=== PATIENT | female | born 1960 | race Hispanic/Latino ===

== ENCOUNTER → 2023-12-30 11:01 | Outpatient (REF) | payer OTHER, SELFPAY | LOC: WDC 11:01 | PROVIDERS: ATTENDING PHYSICIAN Nurse Practitioner Adult Health | DX: Z12.31 Encounter for screening mammogram for malignant neoplasm of breast (principal); M85.80 Other specified disorders of bone density and structure, unspecified site; M25.571 Pain in right ankle and joints of right foot | CPT/HCPCS: 73610; 77063; 77067; 77080 ==

== ENCOUNTER → 2025-02-21 19:41 | Outpatient (REF) | payer OTHER, SELFPAY | LOC: WDC 19:41 | PROVIDERS: ATTENDING PHYSICIAN Nurse Practitioner Adult Health | DX: Z12.31 Encounter for screening mammogram for malignant neoplasm of breast (principal) | CPT/HCPCS: 77063; 77067 ==